=== PATIENT | male | born 1995 ===

== ENCOUNTER 2016-09-26 17:26 | Emergency (ER) ==
[2016-09-26 17:32] VITALS: BP 146/92; TEMP 99.1; BMI 25.7
--- NOTE | 2016-09-26 18:11 | DI ---
EXAM: Left ankle, three views, 09/26/2016 HISTORY: Pain COMPARISON: 09/26/2016 FINDINGS / IMPRESSION: Normal anatomic line is maintained. There is no evidence of acute fracture or dislocation. No acute osseous abnormality.
--- NOTE | 2016-09-26 18:12 | DI ---
EXAM: Left foot, three views, 09/26/2016 HISTORY: Pain COMPARISON: None. FINDINGS / IMPRESSION: Normal anatomic line is maintained. There is no evidence of fracture or dis location. No acute osseous abnormality.
--- NOTE | 2016-09-26 18:14 | ED.PDOC ---
General ED Provider: Dr. MADYSON PRITCHETT Chief Complaint: Ankle Pain/Injury Stated Complaint: right ankle/ foot pain Time Seen by Physician: 17:26 Mode of Arrival: Walk-In Information Source: Patient Exam Limitations: No limitations Primary Care Provider: MANFRED ALMAZAN Nursing and Triage Documentation Reviewed and Agree: Yes Musculoskeletal Complaint Exam - Knee Pain Complaint/Exam Mechanism of Injury: Reports: Trauma, No known trauma (month ago and films were negative NO NEW INJURY) Onset/Duration: 30 DAYS Symptoms Are: Still present Onset of Pain: Reports: Weeks Initial Severity: Moderate Current Severity: Moderate Location: Reports: Discrete Character: Reports: Aching Alleviating: Reports: Rest, Position Aggravating: Reports: Movement, Weight bearing, Prolonged standing Associated Signs and Symptoms: Denies: Swelling, Redness, Bruising, Fever, Weakness, Numbness, Tingling Able to Bear Weight: Yes Septic Arthritis Risk Factors: Reports: None Gout Risk Factors: Reports: None Lashawn Test Positive: No Vane Test Positive: No Limited Range of Motion: Present: Active Differential Diagnoses: Closed Fracture Review of Systems - Review Of Systems Constitutional: Reports: No symptoms Eyes: Reports: No symptoms Ears, Nose, Mouth, Throat: Reports: No symptoms Respiratory: Reports: No symptoms Cardiac: Reports: No symptoms GI: Reports: No symptoms : Reports: No symptoms Musculoskeletal: Reports: Joint pain Skin: Reports: No symptoms Neurological: Reports: No symptoms Endocrine: Reports: No symptoms Hematologic/Lymphatic: Reports: No symptoms All Other Systems: Reviewed and Negative Past Medical History - Past Medical History Previously Healthy: Yes Endocrine: Reports: None Cardiovascular: Reports: None Respiratory: Reports: None Hematological: Reports: None Gastrointestinal: Reports: None Genitourinary: Reports: None Neuro/Psych: Reports: None Musculoskeletal: Reports: None Cancer: Reports: None - Surgical History General Surgical History: Reports: None - Family History Family History: Reports: None - Social History Smoking Status: Former smoker Hx Substance Use: No Alcohol Screening: None Physical Exam - Physical Exam Appearance: Well-appearing, No pain distress, Well-nourished Eyes: WOJCIECH, EOMI, Conjunctiva clear ENT: Ears normal, Nose normal, Oropharynx normal Respiratory: Airway patent, Breath sounds clear, Breath sounds equal, Respirations nonlabored Cardiovascular: RRR, Pulses normal, No rub, No murmur GI/: Soft, Nontender, No masses, Bowel sounds normal, No Organomegaly Musculoskeletal: Normal strength, ROM intact, No edema, No calf tenderness Skin: Warm, Dry, Normal color Neurological: Sensation intact, Motor intact, Reflexes intact, Cranial nerves intact, Alert, Oriented Psychiatric: Affect appropriate, Mood appropriate Critical Care Note - Critical Care Note Total Time (mins): 0 Course - Course Orders, Labs, Meds: Orders Category Date Time Status ANKLE, LEFT MIN 3 VIEWS Stat RADS 09/26/16 17:34 Completed FOOT, LEFT 3 VIEWS Stat RADS 09/26/16 17:34 Taken Vital Signs: Temp Pulse Resp BP Pulse Ox 09/26/16 17:26 99.1 F 86 16 146/92 H 98 Departure - Departure Time of Disposition: 18:14 Disposition: HOME SELF-CARE Discharge Problem: Ankle pain Instructions: Ankle Sprain (ED) Condition: Good Pt referred to PMD for follow-up: No Additional Instructions: Please call your Family Physician as soon as possible to schedule a follow-up appointment. you must obtain an mri through [facility] i think this is a soft tissue injury Allergies/Adverse Reactions: Allergies venom-honey bee [bee venom (honey bee)] Adverse Reaction (Unverified 09/26/16 17 :30) Home Medications: Ambulatory Orders 1 [No Reported Medications] 09/26/16
== END 2016-09-26 18:26 | disposition home or self-care (01) ==
LOC: ED 17:26
DX: M25.572 Pain in left ankle and joints of left foot (principal)
CPT/HCPCS: 99283

== ENCOUNTER 2016-10-07 18:42 | Emergency (ER) ==
[2016-10-07 18:45] VITALS: BP 168/110; TEMP 98.2; BMI 25.7
[2016-10-07] MEDS ORDERED: ZOFRAN 4 MG/2 ML IM STA (19:02)
[2016-10-07] MEDS ORDERED: DEMEROL 25 MG/ML SYRINGE IM STA (19:02)
--- NOTE | 2016-10-07 19:04 | ED.PDOC ---
General ED Provider: Dr. FRANK SLADE Chief Complaint: Abdominal Pain Stated Complaint: abdominal pain,nausea and vomitings Time Seen by Physician: 19:03 Mode of Arrival: Walk-In Information Source: Patient Primary Care Provider: MANFRED ALMAZAN Nursing and Triage Documentation Reviewed and Agree: Yes GI Complaint Exam - Abdominal Pain Complaint/Exam Onset: Gradual Symptoms Are: Still present Timing: Constant Initial Severity: Moderate Current Severity: Moderate Location of Pain: Epigastric Radiates To: Reports: Back, Flank Character: Reports: Dull, Aching Aggravating: Reports: Movement, Food Alleviating: Reports: None Associated Signs and Symptoms: Reports: Nausea, Vomiting. Denies: Diaphoresis, Fever, Cough, Chest pain, Dizziness, Back pain, Constipation, Blood in stool, Dysuria, Urinary frequency, Decreased urine output, Decreased appetite, Discharge, Diarrhea, Decreased activity AAA Risk Factors: Reports: None Cardiac Risk Factors: Reports: None Testicular Torsion Risk Factors: Reports: None Surgical Obstruction Risk Factors: Reports: None Related Surgical History: Reports: None Abdominal Findings: Absent: Pulsatile mass, Abdominal distention, Unequal femoral pulses Differential Diagnoses: Pancreatitis, GB, PUD Review of Systems - Review Of Systems Constitutional: Reports: No symptoms Eyes: Reports: No symptoms Ears, Nose, Mouth, Throat: Reports: No symptoms Respiratory: Reports: No symptoms Cardiac: Reports: No symptoms GI: Reports: Abdominal pain, Nausea, Vomiting : Reports: No symptoms Musculoskeletal: Reports: No symptoms Skin: Reports: No symptoms Neurological: Reports: No symptoms Endocrine: Reports: No symptoms Hematologic/Lymphatic: Reports: No symptoms All Other Systems: Reviewed and Negative Past Medical History - Past Medical History Previously Healthy: Yes Endocrine: Reports: None Cardiovascular: Reports: None Respiratory: Reports: None Hematological: Reports: None Gastrointestinal: Reports: None Genitourinary: Reports: None Neuro/Psych: Reports: None Musculoskeletal: Reports: None Cancer: Reports: None - Surgical History General Surgical History: Reports: None - Family History Family History: Reports: None - Social History Smoking Status: Former smoker Hx Substance Use: No Alcohol Screening: None Physical Exam - Physical Exam Appearance: Ill-appearing Pain Distress: Moderate Eyes: WOJCIECH, EOMI ENT: Ears normal, Nose normal, Oropharynx normal Respiratory: Airway patent, Breath sounds clear, Breath sounds equal, Respirations nonlabored Cardiovascular: RRR, Pulses normal, No rub, No murmur GI/: Soft, Tender Musculoskeletal: Normal strength, ROM intact, No edema, No calf tenderness Skin: Warm, Dry, Normal color Neurological: Sensation intact, Motor intact, Reflexes intact, Cranial nerves intact, Alert, Oriented Psychiatric: Affect appropriate, Mood appropriate Interpretation - Radiology Interpretation Radiology Interpretation By: Radiologist Radiology Results: Negative Exam Interpreted: CT Scan Critical Care Note - Critical Care Note Total Time (mins): 0 Course - Course Hematology/Chemistry: 10/07/16 19:17 10/07/16 19:17 Orders, Labs, Meds: Lab Review 10/07/16 19:17 WBC 11.69 H RBC 5.16 Hgb 16.3 Hct 45.6 MCV 88.4 MCH 31.6 H MCHC 35.7 H RDW Coeff of Sonja 13.1 Plt Count 192 Immature Gran % (Auto) 0.3 Neut % (Auto) 80.1 Lymph % (Auto) 9.9 L [place] % (Auto) 8.2 Eos % (Auto) 0.7 Baso % (Auto) 0.8 Immature Gran # (Auto) 0.0 Neut # 9.4 H Lymph # 1.2 [place] # 1.0 Eos # 0.1 Baso # 0.1 Sodium 138 Potassium 4.0 Chloride 102 Carbon Dioxide 25 Anion Gap 15.0 BUN 11 Creatinine 0.96 Estimated GFR (MDRD) 100.00 BUN/Creatinine Ratio 11.45 Glucose 117 H Calcium 9.2 Total Bilirubin 0.37 AST 24 ALT 53 Alkaline Phosphatase 107 Total Protein 7.7 Albumin 4.2 Globulin 3.5 Albumin/Globulin Ratio 1.20 Amylase 50 Lipase 26 Orders Category Date Time Status AMYLASE Stat LAB 10/07/16 19:17 Completed CBC W/ AUTO DIFF Stat LAB 10/07/16 19:17 Completed COMPREHENSIVE METABOLIC PANEL Stat LAB 10/07/16 19:17 Completed LIPASE Stat LAB 10/07/16 19:17 Completed Meperidine HCl/Pf [Demerol 25 mg/ml Syringe] MEDS 10/07/16 19:02 Discontinued 25 mg IM ONCE STA Ondansetron HCl/Pf [Zofran 4 mg/2 ml] MEDS 10/07/16 19:02 Discontinued 4 mg IM ONCE STA CT ABDOMEN/PELVIS WO CONTRAST Stat RADS 10/07/16 19:02 Completed Medications Discontinued Medications Generic Name Dose Route Start Last Admin Trade Name Freq PRN Reason Stop Dose Admin Meperidine HCl 25 mg 10/07/16 19:02 10/07/16 19:27 Demerol 25 Mg/Ml Syringe IM 10/07/16 19:03 25 mg ONCE STA Administration Ondansetron HCl 4 mg 10/07/16 19:02 10/07/16 19:25 Zofran 4 Mg/2 Ml IM 10/07/16 19:03 4 mg ONCE STA Administration Vital Signs: Temp Pulse Resp BP Pulse Ox 10/07/16 18:43 98.2 F 70 18 168/110 H 98 Departure - Departure Time of Disposition: 19:49 Disposition: HOME SELF-CARE Discharge Problem: Gastroenteritis Instructions: Gastroenteritis (ED) Condition: Stable Pt referred to PMD for follow-up: Yes Additional Instructions: Increase hydration soft diet for 3-4 days if not better come back Prescriptions: Ondansetron [Zofran Odt] 4 mg PO Q8H #20 tab.rapdis Sucralfate Susp [Carafate] 1 gm PO ACHS #1 bottle Allergies/Adverse Reactions: Allergies venom-honey bee [bee venom (honey bee)] Adverse Reaction (Verified 10/07/16 18: 45) Home Medications: Ambulatory Orders Ondansetron [Zofran Odt] 4 mg PO Q8H #20 tab.rapdis 10/07/16 Sucralfate Susp [Carafate] 1 gm PO ACHS #1 bottle 10/07/16 Disposition Discussed With: Patient, Family
[2016-10-07 19:20] LABS: BASOPHILS # (AUTO) 0.1 K/uL (0-0.2); BASOPHILS % (AUTO) 0.8 % (0.0-3.0); EOSINOPHILS # (AUTO) 0.1 K/ul (0.0-0.7); EOSINOPHILS % (AUTO) 0.7 % (0.0-7.0); HEMATOCRIT 45.6 % (42.0-52.0); HEMOGLOBIN 16.3 g/dl (14.0-18.0); IMMATURE GRANULOCYTE % (AUTO) 0.3 % (0.0-5.0); LYMPHOCYTES # (AUTO) 1.2 K/uL (0.60-3.4); LYMPHOCYTES % (AUTO) 9.9 (10.0-50.0); MEAN CORPUSCULAR HEMOGLOBIN 31.6 pg (27.0-31.0); MEAN CORPUSCULAR HGB CONC 35.7 (31.8-35.4); MEAN CORPUSCULAR VOLUME 88.4 fl (80.0-94.0); MONOCYTES % (AUTO) 8.2 (0-10); NEUTROPHILS # (AUTO) 9.4 K/ul (2.0-6.9); NEUTROPHILS % (AUTO) 80.1; PLATELET COUNT 192 10^3/uL (140-440); RED BLOOD COUNT 5.16 10^6/ul (4.70-6.10); WHITE BLOOD COUNT 11.69 K/ul (4.2-10.2)
--- NOTE | 2016-10-07 19:35 | CT ---
Exam: CT scan of the abdomen pelvis without contrast. Date: 10/07/2016. Comparison: None. HISTORY: Epigastric pain. TECHNIQUE: Helical scan of the abdomen pelvis was performed without contrast. FINDINGS: The lung bases are clear. The lumbar spine and bony pelvis are within normal limits. The spleen and liver have a uniform attenuation. The gallbladder, stomach, pancreas and adrenal gla nds are normal. The kidneys have a normal morphology. No calculi or hydronephrosis is seen. No re troperitoneal adenopathy is present. Aorta does not exceed 3 cm. The small bowel and appendix are normal. The colon, pelvic sidewall and bladder are normal. There is no free fluid in the pelvis. The rectum and inguinal regions are normal. No acute findings in the abdomen or pelvis.
[2016-10-07 19:40] LABS: ALBUMIN 4.2 g/dL (3.4-5.0); ALBUMIN/GLOBULIN RATIO 1.2; BILIRUBIN,TOTAL 0.37 mg/dL (0.00-1.20); BUN/CREATININE RATIO 11.45; CALCIUM 9.2 mg/dL (8.2-10.2); CREATININE 0.96 mg/dL (0.60-1.10); TOTAL PROTEIN 7.7 g/dL (6.4-8.2)
== END 2016-10-07 19:53 | disposition home or self-care (01) ==
LOC: ED 18:42
DX: K52.9 Noninfective gastroenteritis and colitis, unspecified (principal)
CPT/HCPCS: 36415; 80053; 82150; 83690; 85025; 96372; 99283